=== PATIENT | female | born 1995 | race Caucasian/White ===

== ENCOUNTER 2017-10-22 09:59 | Emergency (ER) | payer SELFPAY ==
[~2017-10-22] VITALS: Ht 172.7 cm; Wt 83.0 kg
[~2017-10-22 09:59] MED LIST: ALBU6.7H INH; IBUP-232 PO; PERC5TAB12 PO; [UNRECOGNIZED DRUG - CODE] PO
[2017-10-22 10:07] VITALS: BP 120/76; PULSE 123; RESP 16; TEMP 99.8; O2SAT 96
--- NOTE | 2017-10-22 10:43 | PD ---
HPI Chief Complaint: ENT Complaint Time Seen by Provider: 10:37 Travel History International Travel<30 days: No Contact w/Intl Traveler<30days: No Traveled to known affect area: No History of Present Illness HPI 22-year-old female presents to the emergency Department with complaint of sore throat, body aches, subjective fever and chills 3 days. Denies some throat, difficulty swallowing, unusual drooling. Reports painful swallowing. Denies vomiting, headache, vomiting, abdominal pain. Denies chest tightness, shortness of breath, wheezing. Occasional cough. Symptoms are mild in severity. He took Midol for her symptoms yesterday. Had not taken any other medications or tried any other treatments to alleviate her symptoms. No known aggravating or relieving factors. No known allergies. Does not have an established primary care provider. History of asthma and is asking for a refill on her albuterol inhaler. She has not needed to use an albuterol inhaler during this illness. Has no other medical complaints. No other modifying factors or associated signs and symptoms. PFSH Past Medical History Asthma: Yes Diminished Hearing: No Immunizations Current: Yes Tetanus Vaccination: < 5 Years ?: Not : 0 Past Surgical History Tonsillectomy: Yes Other Surgery: Yes (adenoidectomy) Social History Alcohol Use: Yes (RECREATIONAL ) Tobacco Use: Yes (VAPE) Substance Use: No Allergies-Medications (Allergen,Severity, Reaction): Coded Allergies: No Known Allergies (Verified Adverse Reaction, Unknown, 10/22/17) Reported Meds & Prescriptions Reported Meds & Active Scripts Active Ibuprofen 800 Mg Tab 800 Mg PO Q8H PRN Magic Mouthwash Pediatric/Adult Liq (Lidocaine/Diphenhydr/Alum/Mg/Simeth) 60 Ml Susp 5 Ml SWISH-SWAL Q3HR PRN Each 5mL contains: Diphenydramine 4.5mg, Viscous Lidocaine 2% 10mg, Maalox Advanced Regular Strength 2.7ml Ventolin Hfa 18 GM Inh (Albuterol Sulfate) 90 Mcg/Act Aer 2 Puff INH Q4-6H PRN Review of Systems Except as stated in HPI: all other systems reviewed are Neg Physical Exam Narrative GENERAL: Well-nourished, well-developed female patient, in no acute distress; low-grade fever 99.8, nontoxic-appearing SKIN: Warm and dry. No rash. HEAD: Atraumatic. Normocephalic. EYES: Pupils equal and round at 3 mm with brisk reaction. No scleral icterus. No injection or drainage. PERRLA. ENT: Mucosa pink and dry. Pharynx with 2+ tonsils; erythema; without exudate. No Uvular edema. No uvular, palatal, or tonsillar deviation. Airway patent. Voice is hoarse. EARS: Bilateral pinnae and external canals appear within normal limits. Bilateral tympanic membranes without erythema, dullness or perforation.. NECK: Trachea midline. Anterior cervical lymphadenopathy and tenderness. CARDIOVASCULAR: Tachycardic rate and rhythm; patient says she is nervous. No murmur appreciated. RESPIRATORY: No accessory muscle use. Clear to auscultation. Breath sounds equal bilaterally. GASTROINTESTINAL: Abdomen soft, non-tender, nondistended. Hepatic and splenic margins not palpable. Bowel sounds are active 4 quadrants. MUSCULOSKELETAL: No obvious deformities. No clubbing. No cyanosis. No edema. NEUROLOGICAL: Awake and alert. Oriented 3. No obvious cranial nerve deficits. Motor grossly within normal limits. Normal speech. Moves all extremities. PSYCHIATRIC: Appropriate mood and affect; insight and judgment normal. Data Data Last Documented VS Vital Signs Date Time Temp Pulse Resp B/P (MAP) Pulse Ox O2 Delivery O2 Flow Rate FiO2 10/22/17 10:07 99.8 123 16 120/76 (91) 96 Orders Orders Ibuprofen (Motrin) (10/22/17 10:45) Influenzae A/B Antigen (10/22/17 10:42) Group A Rapid Strep Screen (10/22/17 10:42) Strep Culture (Group A) (10/22/17 10:55) [facility] Medical Decision Making Medical Screen Exam Complete: Yes Emergency Medical Condition: Yes Medical Record Reviewed: Yes Differential Diagnosis Influenza, strep pharyngitis, viral illness, medication refill Narrative Course 22-year-old female with cold/flu symptoms and sore throat. Since heart rate is in the 110s to 120 and she says she feels nervous. Denies chest pain or shortness of breath. Patient with low-grade fever of 99.8 in the ER. Reports subjective fevers at home. Rapid strep, influenza, ibuprofen ordered. 1124: Rapid strep and influenza negative. Discussed viral illness and symptom management. I gave the patient option of antibiotic therapy per her request and she declined. Ibuprofen and Magic mouthwash prescribed for home. Medication refill for Ventolin inhaler provided. Instructed patient to follow up with primary care provider. Patient verbalizes understanding and agreement with treatment plan. Patient is medically cleared and stable for discharge. Discussed reasons to return to the emergency department. Patient agrees with treatment plan. The patients vital signs are stable and the patient is stable for outpatient follow-up and treatment. Patient discharged home, stable and in no acute distress. Diagnosis Primary Impression: Viral illness Additional Impression: Medication refill Referrals: Primary Care Physician Patient Instructions: Cold Symptoms (ED), General Instructions, Safe Use of Cough and Cold Medicines (ED) Departure Forms: Tests/Procedures, Work Release Enter return to work date: Oct 24, 2017 Additional Instructions: Ibuprofen or Tylenol as directed and as needed to reduce fever; may alternate ibuprofen and Tylenol as needed every 3 hours to minimize fever [id number] cold/flu medications as directed and as needed for symptom management Get plenty of sleep/rest Drink plenty of fluids to prevent dehydration; such as Gatorade, Powerade, Pedialyte Phelps diet to encourage nutrition such as crackers, fruit, applesauce, toast, soup etc. Use an air humidifier/turn off ceiling fans Follow-up with your primary care provider within 1 day Return immediately to the emergency department with worsening of symptoms Med/Other Pt SpecificInfo: Prescription(s) given Scripts Ibuprofen (Ibuprofen) 800 Mg Tab 800 MG PO Q8H Y for PAIN SCALE 1 TO 10, #20 TAB 0 Refills Prov: Dona NurP 10/22/17 Fsnhixxmbztzdfn-Gwnaqffwr-Fls-Alum-Simeth Liq (Magic Mouthwash Pediatric/Adult Liq) 60 Ml Susp 5 ML SWISH-SWAL Q3HR Y for SORE THROAT, #60 ML 0 Refills Each 5mL contains: Diphenydramine 4.5mg, Viscous Lidocaine 2% 10mg, Maalox Advanced Regular Strength 2.7ml Prov: Dona Nur 10/22/17 Albuterol 18 GM Inh (Ventolin Hfa 18 GM Inh) 90 Mcg/Act Aer 2 PUFF INH Q4-6H Y for SOB/WHEEZING, #1 INHALER 0 Refills Prov: Dona Nur 10/22/17 Disposition: 01 DISCHARGE HOME Condition: Stable Dona Nur Oct 22, 2017 10:43
[2017-10-22] MEDS ORDERED: IBUPROFEN 800 MG TAB PO ONE (10:45)
[2017-10-22] MEDS ORDERED: IBUP1TAB7 PO (11:31)
[2017-10-22] MEDS ORDERED: VENTAER INH (11:31)
[2017-10-22] MEDS ORDERED: MAGICPED SWISH-SWAL (11:31)
== END 2017-10-22 11:47 | disposition home or self-care (01) ==
LOC: PHEFT 09:59
DX: B34.9 Viral infection, unspecified (principal); J45.909 Unspecified asthma, uncomplicated; Z72.0 Tobacco use; Z76.0 Encounter for issue of repeat prescription
CPT/HCPCS: 86403; 87081; 87804; 87880; 99284